=== PATIENT | female | born 1965 | race Caucasian/White ===

== ENCOUNTER 2024-02-18 17:43 | Emergency (ER) | payer MEDICAID, OTHER ==
[~2024-02-18] VITALS: Ht 165.1 cm; Wt 80.0 kg
[2024-02-18 17:52] VITALS: O2SAT 100
[2024-02-18 20:45] VITALS: BP 172/90; PULSE 86; RESP 15; TEMP 36.94740; O2SAT 98
== END 2024-02-18 20:48 | disposition home or self-care (01) ==
LOC: ER 17:43
DX: I10 Essential (primary) hypertension (principal)
CPT/HCPCS: 99283